=== PATIENT | female | born 1985 | race Caucasian/White ===

== ENCOUNTER 2018-04-29 14:05 | Day surgery (SDC) | payer OTHER ==
[~2018-04-29] VITALS: Ht 175.3 cm; Wt 79.4 kg
[~2018-04-29 14:05] MED LIST: ANAPROX275 MG PO; RHOGAM300 MCG/SY IM
[2018-04-29] MEDS ORDERED: KETO10TA2 PO (18:31)
== END 2018-04-29 21:15 | disposition home or self-care (01) ==
LOC: ER 14:05 → CIR.AMB 15:56
DX: O03.4 Incomplete spontaneous abortion without complication (principal)

== ENCOUNTER 2018-05-01 09:19 | Emergency (ER) | payer OTHER ==
[~2018-05-01] VITALS: Ht 175.3 cm; Wt 79.4 kg
[~2018-05-01 09:19] MED LIST changes: +KETO10TA2 PO
[2018-05-01] MEDS ORDERED: FIORINAL 50-321 EACH PO (13:43)
== END 2018-05-01 14:55 | disposition home or self-care (01) ==
LOC: ER 09:19
DX: T88.59XA Other complications of anesthesia, initial encounter (principal); G44.40 Drug-induced headache, not elsewhere classified, not intractable

== ENCOUNTER 2018-12-09 10:56 | Emergency (ER) | payer OTHER ==
[~2018-12-09] VITALS: Ht 175.3 cm; Wt 78.9 kg
[~2018-12-09 10:56] MED LIST changes: +FIORINAL 50-321 EACH PO
== END 2018-12-09 12:42 | disposition home or self-care (01) ==
LOC: ER 10:56
DX: S60.475A Other superficial bite of left ring finger, initial encounter (principal); W54.0XXA Bitten by dog, initial encounter; Y93.89 Activity, other specified; Y92.89 Other specified places as the place of occurrence of the external cause; Y99.8 Other external cause status

== ENCOUNTER 2019-06-11 20:02 | Outpatient (CLI) | payer OTHER | END 2019-06-11 21:30 | disposition home or self-care (01) | LOC: NST 20:02 | DX: O35.8XX0 Maternal care for other (suspected) fetal abnormality and damage, not applicable or unspecified (principal); Z3A.36 36 weeks gestation of pregnancy ==

== ENCOUNTER 2019-06-12 14:30 | Inpatient (IN) | payer OTHER ==
[~2019-06-12] VITALS: Ht 175.3 cm; Wt 88.0 kg
[2019-06-26] MEDS ORDERED: PRENATAL TABLE1 EAC1 PO (06:45)
== END 2019-06-28 14:36 | disposition home or self-care (01) | DRG 807 ==
LOC: O/R 14:30 → LDR 06-26 05:59 → OB/GYN 06-26 05:59 → LDR 06-26 06:39 → OB/GYN 06-26 14:35
PROVIDERS: ADMIT Obstetrics & Gynecology
PROC: 10E0XZZ Delivery of Products of Conception, External Approach (ICD-10-PCS; principal; 2019-06-26)
PROC: 10907ZC Drainage of Amniotic Fluid, Therapeutic from Products of Conception, Via Natural or Artificial Opening (ICD-10-PCS; 2019-06-26)
PROC: 3E033VJ Introduction of Other Hormone into Peripheral Vein, Percutaneous Approach (ICD-10-PCS; 2019-06-26)
PROC: 4A1HXCZ Monitoring of Products of Conception, Cardiac Rate, External Approach (ICD-10-PCS; 2019-06-26)
DX: O80 Encounter for full-term uncomplicated delivery (principal); Z37.0 Single live birth; Z3A.38 38 weeks gestation of pregnancy

== ENCOUNTER 2022-06-08 08:28 | Day surgery (SDC) | payer OTHER ==
[~2022-06-08 08:28] MED LIST changes: +ELIQUIS5 M1 PO; +PRENATAL TABLE1 EAC1 PO
[2022-06-08] MEDS ORDERED: MORGIDOX100 MG PO (15:44)
[2022-06-08] MEDS ORDERED: PERCOCET 5-3251 EACH PO (15:45)
== END 2022-06-08 17:35 | disposition home or self-care (01) ==
LOC: CIR.AMB 08:28
PROVIDERS: ATTEND Obstetrics & Gynecology
DX: D06.0 Carcinoma in situ of endocervix (principal); Z88.2 Allergy status to sulfonamides; Z20.822 Contact with and (suspected) exposure to COVID-19; F17.210 Nicotine dependence, cigarettes, uncomplicated; Z86.16 Personal history of COVID-19; D68.59 Other primary thrombophilia; M35.9 Systemic involvement of connective tissue, unspecified; Z79.01 Long term (current) use of anticoagulants

== ENCOUNTER 2024-08-18 18:51 | Emergency (ER) | payer OTHER ==
[~2024-08-18] VITALS: Ht 175.3 cm; Wt 72.6 kg
[~2024-08-18 18:51] MED LIST changes: +MORGIDOX100 MG PO; +PERCOCET 5-3251 EACH PO; +ULTRACET PO
[2024-08-18] MEDS ORDERED: KETOROLAC TROMETHAMINE 60 MG VIAL IM STA (20:52)
[2024-08-18] MEDS ORDERED: DEXAMETHASONE SODIUM PHOSPHATE 4 MG/ML VIAL IM STA (20:53)
[2024-08-18 21:06] LABS: HEMATOCRIT 35.6 % (36.0-45.00); MEAN CORPUSCULAR HEMOGLOBIN 29.9 pg (27.00-32.0); MEAN CORPUSCULAR HGB CONC 33.6 g/dl (32.0-36.0); PLATELET COUNT 238 K/uL (150-450); RED CELL DISTRIBUTION WIDTH 13.4 % (11.5-14.5)
== END 2024-08-18 23:33 | disposition home or self-care (01) ==
LOC: ER 18:53
DX: J06.9 Acute upper respiratory infection, unspecified (principal); Z88.2 Allergy status to sulfonamides; Z20.822 Contact with and (suspected) exposure to COVID-19